=== PATIENT | female | born 1945 ===

== ENCOUNTER 2016-12-29 17:33 | Emergency (ER) | payer MEDICARE ==
--- NOTE | 2016-12-29 18:13 | UC ---
Skin Complaint HPI - HPI Summary HPI Summary: REMOVED TWO TICKS ON TUESDAY. BEGINNING TO DEVELOP RASH ON RIGHT HIP - History of Current Complaint Chief Complaint: UCSkin Time Seen by Provider: 12/29/16 17:49 Stated Complaint: TWO TICK BITES Hx Obtained From: Patient Onset/Duration: Gradual Onset, Lasting Days, Still Present Skin Exposure Onset/Duration: Days Ago Timing: Constant Onset Severity: Mild Current Severity: Mild Location: Discrete - RIGHT HIP, LEFT AXILLA Character: Redness Aggravating: Nothing Alleviating: Nothing Associated Signs & Symptoms: Positive: Rash. Negative: Nausea, Fever, Bruising , Tenderness, Red Streaks Related History: Insect Bite/Sting, Possible Reaction to: Insect - Allergy/Home Medications Allergies/Adverse Reactions: Allergies Allergy/AdvReac Type Severity Reaction Status Date / Time Acetaminophen [From Percocet] Allergy Vomiting Verified 12/29/16 17:37 Oxycodone [From Percocet] Allergy Vomiting Verified 12/29/16 17:37 Review of Systems Constitutional: Negative Skin: Rash Eyes: Negative ENT: Negative Respiratory: Negative Cardiovascular: Negative Gastrointestinal: Negative Genitourinary: Negative Motor: Negative Neurovascular: Negative Musculoskeletal: Negative Neurological: Negative Psychological: Negative All Other Systems Reviewed And Are Negative: Yes PMH/Surg Hx/FS Hx/Imm Hx Previously Healthy: Yes - Surgical History Surgical History: Yes Surgery Procedure, Year, and Place: tonsillectomy - Family History Known Family History: Negative: Blood Disorder - Social History Occupation: Retired Lives: With Family Alcohol Use: Occasionally Substance Use Type: None Smoking Status (MU): Former Smoker Physical Exam Triage Information Reviewed: Yes Appearance: Well-Appearing, No Pain Distress, Well-Nourished Vital Signs: Initial Vital Signs Temp 98.8 F 12/29/16 17:34 Pulse 85 12/29/16 17:34 Resp 16 12/29/16 17:34 BP 131/70 12/29/16 17:34 Pulse Ox 100 12/29/16 17:34 Vital Signs Reviewed: Yes Eye Exam: Normal ENT Exam: Normal ENT: Positive: Normal ENT inspection, TMs normal Dental Exam: Normal Neck exam: Normal Neck: Positive: Supple, Nontender, No Lymphadenopathy Respiratory Exam: Normal Respiratory: Positive: Chest non-tender, Lungs clear, Normal breath sounds, No respiratory distress Cardiovascular Exam: Normal Cardiovascular: Positive: RRR, No Murmur Abdominal Exam: Normal Abdomen Description: Positive: Nontender, No Organomegaly Bowel Sounds: Positive: Present Musculoskeletal Exam: Normal Musculoskeletal: Positive: Strength Intact, ROM Intact Neurological Exam: Normal Psychological Exam: Normal Psychological: Positive: Normal Response To Family Skin: Positive: rashes - ERYTHEMATOUS RASH RIGHT HIP 4cm X 4cm Course/Dx - Differential Diagnoses - Skin Complaint Differential Diagnoses: Cellulitis, Impetigo, MRSA, Poison Lien, Poison [place], Tick Born Illness, Tinea - Diagnoses Provider Diagnoses: TICK BITE; 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): 1 - ERYTHEMATOUS RASH RIGHT HIP 4cm X 4cm
== END 2016-12-29 18:08 | disposition home or self-care (01) ==
LOC: UCEAST 17:33
DX: S70.261A Insect bite (nonvenomous), right hip, initial encounter (principal); W57.XXXA Bitten or stung by nonvenomous insect and other nonvenomous arthropods, initial encounter; Y92.9 Unspecified place or not applicable
CPT/HCPCS: 99202; G0463